=== PATIENT | female | born 1935 | race Caucasian/White ===

== ENCOUNTER 2021-08-29 10:52 | Emergency (ER) | payer MEDICARE, OTHER ==
[2021-08-29] MEDS ORDERED: Sodium Chloride 0.9% 10 ML Syringe FLUSH PRN (12:00)
[2021-08-29 12:09] LABS: CHLORIDE,CL 102 mmol/L (98-107); SODIUM,NA 137 mmol/L (136-145)
[2021-08-29 12:11] LABS: ANION GAP 13.9 mmol/L (5-15)
[2021-08-29] MEDS ORDERED: Iopamidol 612 MG/ML 100 ML Bottle IVPUSH ONE (12:45)
[2021-08-29] MEDS ORDERED: Ciprofloxacin in D5W 400 MG in Premix Bag 1 BAG IV ONE ×2 (13:10)
[2021-08-29 13:24] VITALS: BP 129/67; PULSE 78
--- NOTE | 2021-08-29 13:35 | CT ---
[id number] CT/CT Abdomen Pelvis W IV EXAM: CT Abdomen Pelvis W IV CLINICAL DATA: LEFT SIDED ABDOMEN PAIN, ELEVATED WHITE BLOOD COUNT. COMPARISON STUDY: None. FINDINGS: Dependent atelectasis at the lung bases bilaterally. Large hiatal hernia. The gallbladder is surgically absent. Hepatic steatosis. The spleen, pancreas, adrenal glands are unremarkable. Bilateral renal cortical cysts. The kidneys are otherwise unremarkable. Extensive colonic diverticulosis. In the region of multiple descending colon diverticula there is wall thickening and surrounding inflammatory change. No free air, free fluid or fluid collection. Scattered changes of spondylosis the spine. No fracture or osseous lesion. IMPRESSION: 1. Acute uncomplicated diverticulitis of the descending colon. Patricio Patterson DO 08/29/21 [id number] Thank you for allowing us to participate in the care of your patient.
[2021-08-29] MEDS ORDERED: Take Home: metroNIDAZOLE 500 MG Tab, 4 Tab Pack PO ONE (13:45)
[2021-08-29] MEDS ORDERED: Take Home: Ciprofloxacin 500 MG Tab, 2 Tab Pack PO ONE (13:45)
--- NOTE | 2021-08-29 23:34 | EDM.PDOC ---
ED HPI GENERAL MEDICAL PROBLEM - General Chief Complaint: General Stated Complaint: WEAKNESS,NOT FEELING WELL FOR 1 WEEK Time Seen by Provider: 08/29/21 11:10 Source of Information: Reports: Patient, Family History Limitations: Reports: No Limitations - History of Present Illness INITIAL COMMENTS - FREE TEXT/NARRATIVE: Pt. presents to ER with complaints of L sided abd. pain. She has been experiencing some weakness, fatigue for the past week. Denies any fever or chills. She states that she is passing gas. Denies any melena, hematochezia or hematemesis. Pt. was able to ambulate into ER. Denies any other ill contacts. No nausea, vomiting. Denies any constipation or diarrhea. She denies any cough, chest congestion, sore throat, rhinorrhea. Denies any dysuria, frequency or urgency. Onset: Today Onset Date: 08/29/21 Location: Reports: Head, Face Quality: Reports: Ache - Related Data Allergies Allergy/AdvReac Type Severity Reaction Status Date / Time aspirin Allergy Itching Verified 08/29/21 11:32 codeine Allergy Itching Verified 08/29/21 11:32 Home Meds: Home Meds Ciprofloxacin [Ciloxan 0.3% Ophth Soln] 1 drop OP TID 07/09/16 [History] Ketorolac [Acular 0.5% Ophth Soln] 1 drop OP TID 07/09/16 [History] Levothyroxine 75 mcg PO DAILY 07/09/16 [History] Multivitamin [Multivitamins] 1 tab PO DAILY 07/09/16 [History] Omeprazole Magnesium [Prilosec Otc] 1 cap PO QAM 07/09/16 [History] prednisoLONE Acetate [Pred Forte 1% Ophth Susp] 1 drop OP TID 07/09/16 [History] Past Medical History HEENT History: Reports: Cataract, Other (See Below) Other HEENT History: asteroid hyalitis, Cardiovascular History: Reports: High Cholesterol Respiratory History: Reports: None Gastrointestinal History: Reports: GERD Genitourinary History: Reports: None [employer] History: Reports: None Musculoskeletal History: Reports: Osteoarthritis 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, Peripheral Psychiatric History: Reports: Depression Endocrine/Metabolic History: Reports: Hypothyroidism Hematologic History: Reports: None Immunologic History: Reports: None Oncologic (Cancer) History: Reports: None Dermatologic History: Reports: None - Past Surgical History Head Surgeries/Procedures: Reports: None HEENT Surgical History: Reports: Cataract Surgery, Tonsillectomy Cardiovascular Surgical History: Reports: None Respiratory Surgical History: Reports: None GI Surgical History: Reports: Appendectomy, Cholecystectomy, Colonoscopy, Hernia Repair/Other, Other (See Below) Other GI Surgeries/Procedures: hemorrhoid sx Female Surgical History: Reports: Tubal Ligation Endocrine Surgical History: Reports: None Neurological Surgical History: Reports: None Musculoskeletal Surgical History: Reports: Other (See Below) Other Musculoskeletal Surgeries/Procedures:: bunionextomy bilat, Oncologic Surgical History: Reports: None Dermatological Surgical History: Reports: None Social & Family History - Tobacco Use Tobacco Use Status *Q: Never Tobacco User - Caffeine Use Caffeine Use: Reports: None ED ROS GENERAL - Review of Systems Review Of Systems: See Below Constitutional: Reports: No Symptoms HEENT: Reports: Other (see HPI) Respiratory: Reports: No Symptoms Cardiovascular: Reports: No Symptoms. Denies: Chest Pain, Dyspnea on Exertion, Edema, Orthopnea, Palpitations, Syncope Endocrine: Reports: No Symptoms GI/Abdominal: Reports: No Symptoms : Reports: No Symptoms Musculoskeletal: Reports: No Symptoms Skin: Reports: Other (see HPI) Neurological: Reports: No Symptoms. Denies: Confusion, Dizziness, Headache, Syncope Psychiatric: Reports: No Symptoms ED EXAM, GENERAL - Physical Exam Exam: See Below Exam Limited By: No Limitations General Appearance: Alert, WD/WN, No Apparent Distress Eye Exam: Bilateral Eye: EOMI, Normal Fundi, Normal Inspection, PERRL Nose: Normal Mucosa, No Blood, Other (2 cm laceration across bridge of nose) Throat/Mouth: Normal Inspection, Normal Lips, Normal Teeth, Normal Gums GI/Abdominal: Normal Bowel Sounds, Soft, No Organomegaly, No Distention, No Mass, Pelvis Stable, Guarding, Rigid, Tender Course - Vital Signs Last Recorded V/S: Last Vital Signs Temp 36.4 C 08/29/21 11:10 Pulse 78 08/29/21 13:23 Resp 16 08/29/21 13:23 BP 129/67 08/29/21 13:23 Pulse Ox 94 L 08/29/21 13:23 - Orders/Labs/Meds Orders: Active Orders 24 hr Category Date Time Status CULTURE BLOOD [BC] Stat Lab 08/29/21 11:36 Received CULTURE BLOOD [BC] Stat Lab 08/29/21 11:40 Received CULTURE URINE [RM] Stat Lab 08/29/21 12:08 Received Blood Culture x2 Reflex Set [OM.PC] Stat Oth 08/29/21 11:26 Ordered Peripheral IV Insertion Adult [OM.PC] Routine Oth 08/29/21 12:00 Ordered Labs: Laboratory Tests 08/29/21 08/29/21 08/29/21 Range/Units 11:36 11:36 11:36 WBC 13.4 H (4.0-10.0) x10^3/uL RBC 4.31 (4.00-5.50) x10^6/uL Hgb 12.9 (12.0-16.0) g/dL Hct 38.3 (33.0-47.0) % MCV 88.9 (78.0-93.0) fL MCH 29.9 (26.0-32.0) pg MCHC 33.7 (32.0-36.0) g/dL RDW Coeff of Ana 13.2 (10.0-15.0) % Plt Count 261 (130-400) x10^3/uL Immature Gran % (Auto) 0.10 (0.00-0.43) % Neut % (Auto) 85.1 H (50.0-80.0) % Lymph % (Auto) 6.9 L (25.0-50.0) % Davison % (Auto) 7.7 (2.0-11.0) % Eos % (Auto) 0.0 (0.0-4.0) % Baso % (Auto) 0.2 (0.2-1.2) % Neut # (Auto) 11.4 H (1.8-7.7) x10^3/uL Lymph # (Auto) 0.9 L (1.0-4.8) x10^3/uL Davison # (Auto) 1.0 H (0.0-0.8) x10^3/uL Eos # (Auto) 0.0 (0.0-0.5) x10^3/uL Baso # (Auto) 0.0 (0.0-0.2) x10^3/uL Immature Gran # (Auto) 0.02 (0.00-0.07) x10^3/uL Sodium 137 (136-145) mmol/L Potassium 3.9 (3.5-5.1) mmol/L Chloride 102 (98-107) mmol/L Carbon Dioxide 25 (21-32) mmol/L Anion Gap 13.9 (5-15) mmol/L BUN 10 (7-18) mg/dL Creatinine 0.9 (0.55-1.02) mg/dL Est Cr Clr Drug Dosing TNP Estimated GFR (MDRD) 60 Glucose 105 H (70-99) mg/dL Lactic Acid 1.0 (0.4-2.0) mmol/L Calcium 8.9 (8.5-10.1) mg/dL Corrected Calcium 9.4 (8.5-10.1) mg/dL Total Bilirubin 0.6 (0.2-1.0) mg/dL AST 21 (15-37) U/L ALT 20 (14-59) U/L Alkaline Phosphatase 90 (46-116) U/L C-Reactive Protein 12.1 H (<=0.9) mg/dL Total Protein 8.3 H (6.4-8.2) g/dL Albumin 3.4 (3.4-5.0) g/dL Globulin 4.9 Albumin/Globulin Ratio 0.69 Urine Color (YELLOW) Urine Appearance (CLEAR) Urine pH (5.0-8.0) Ur Specific [place] Urine Protein (NEGATIVE) mg/dL Urine Glucose (UA) (NEGATIVE) mg/dL Urine Ketones (NEGATIVE) mg/dL Urine Occult Blood (NEGATIVE) Urine Nitrite (NEGATIVE) Urine Bilirubin (NEGATIVE) Urine Urobilinogen (0.2) EU/dL Ur Leukocyte Esterase (NEGATIVE) Urine RBC (NOT SEEN) /HPF Urine WBC (NOT SEEN) /HPF Ur Squamous Epith Cells (NOT SEEN) /HPF Amorphous Sediment Urine Bacteria (NOT SEEN) /HPF Urine Mucus (NOT SEEN) /LPF SARS CoV-2 RNA Rapid SEGUNDO (NEGATIVE) 08/29/21 08/29/21 Range/Units 12:03 12:08 WBC (4.0-10.0) x10^3/uL RBC (4.00-5.50) x10^6/uL Hgb (12.0-16.0) g/dL Hct (33.0-47.0) % MCV (78.0-93.0) fL MCH (26.0-32.0) pg MCHC (32.0-36.0) g/dL RDW Coeff of Ana (10.0-15.0) % Plt Count (130-400) x10^3/uL Immature Gran % (Auto) (0.00-0.43) % Neut % (Auto) (50.0-80.0) % Lymph % (Auto) (25.0-50.0) % Davison % (Auto) (2.0-11.0) % Eos % (Auto) (0.0-4.0) % Baso % (Auto) (0.2-1.2) % Neut # (Auto) (1.8-7.7) x10^3/uL Lymph # (Auto) (1.0-4.8) x10^3/uL Davison # (Auto) (0.0-0.8) x10^3/uL Eos # (Auto) (0.0-0.5) x10^3/uL Baso # (Auto) (0.0-0.2) x10^3/uL Immature Gran # (Auto) (0.00-0.07) x10^3/uL Sodium (136-145) mmol/L Potassium (3.5-5.1) mmol/L Chloride (98-107) mmol/L Carbon Dioxide (21-32) mmol/L Anion Gap (5-15) mmol/L BUN (7-18) mg/dL Creatinine (0.55-1.02) mg/dL Est Cr Clr Drug Dosing Estimated GFR (MDRD) Glucose (70-99) mg/dL Lactic Acid (0.4-2.0) mmol/L Calcium (8.5-10.1) mg/dL Corrected Calcium (8.5-10.1) mg/dL Total Bilirubin (0.2-1.0) mg/dL AST (15-37) U/L ALT (14-59) U/L Alkaline Phosphatase (46-116) U/L C-Reactive Protein (<=0.9) mg/dL Total Protein (6.4-8.2) g/dL Albumin (3.4-5.0) g/dL Globulin Albumin/Globulin Ratio Urine Color Yellow (YELLOW) Urine Appearance Slightly cloudy H (CLEAR) Urine pH 8.5 H (5.0-8.0) Ur Specific [place]an 1.015 Urine Protein Negative (NEGATIVE) mg/dL Urine Glucose (UA) Negative (NEGATIVE) mg/dL Urine Ketones Trace H (NEGATIVE) mg/dL Urine Occult Blood Trace-intact H (NEGATIVE) Urine Nitrite Negative (NEGATIVE) Urine Bilirubin Negative (NEGATIVE) Urine Urobilinogen 0.2 (0.2) EU/dL Ur Leukocyte Esterase Large H (NEGATIVE) Urine RBC 0-5 (NOT SEEN) /HPF Urine WBC 10-20 H (NOT SEEN) /HPF Ur Squamous Epith Cells Moderate H (NOT SEEN) /HPF Amorphous Sediment Occasional Urine Bacteria Occasional H (NOT SEEN) /HPF Urine Mucus Few H (NOT SEEN) /LPF SARS CoV-2 RNA Rapid SEGUNDO Negative (NEGATIVE) Meds: Medications Discontinued Medications Generic Name Dose Route Start Last Admin Trade Name Freq PRN Reason Stop Dose Admin Ciprofloxacin 2 packet 08/29/21 13:45 08/29/21 14:32 Take Home: Ciprofloxacin 500 Mg Tab, 2 Tab Pack PO 08/29/21 13:46 2 packet ONETIME ONE Administration Ciprofloxacin/Dextrose 400 mg/ 200 mls @ 200 mls/hr 08/29/21 13:10 08/29/21 13:20 Premix IV 08/29/21 14:09 200 mls/hr STAT ONE Administration Iopamidol 100 ml 08/29/21 12:45 08/29/21 13:11 Iopamidol 612 Mg/Ml 100 Ml Bottle IVPUSH 08/29/21 12:46 75 ml ONETIME ONE Administration Metronidazole 2 packet 08/29/21 13:45 08/29/21 14:32 Take Home: Metronidazole 500 Mg Tab, 4 Tab Pack PO 08/29/21 13:46 2 packet ONETIME ONE Administration Sodium Chloride 10 ml 08/29/21 12:00 Sodium Chloride 0.9% 10 Ml Syringe FLUSH ASDIRECTED PRN Keep Vein Open - Radiology Interpretation Free Text/Narrative:: CT abdomen and pelvis with IV contast obtained, positive for uncomplicated diverticulitis - Re-Assessments/Exams Free Text/Narrative Re-Assessment/Exam: IV access established. Pt. was given cipro 400mg IV. Departure - Departure Time of Disposition: 14:00 Disposition: Home, Self-Care 01 Clinical Impression: Diverticulitis, UTI (urinary tract infection) - Discharge Information Instructions: Diverticulitis, [place], Ciprofloxacin tablets, Metronidazole tablets or capsules Referrals: Laura Mejía PA-C [Primary Care Provider] - Forms: ED Department Discharge Additional Instructions: home to rest. Drink plenty of water. Cipro 500mg 1 twice daily until gone Metronidazole 500mg 1 3 times daily until gone Return to ER if unable to hold down fluids, if you have worsening discomfort, chills, weakness, severe fever, or lightheadedness. Sepsis Event Note (ED) - Focused Exam Vital Signs: Vital Signs Pulse Resp BP Pulse Ox 08/29/21 13:23 78 16 129/67 94 L 08/29/21 12:35 68 14 128/71 96 - Problem List Review Problem List Initiated/Reviewed/Updated: Yes - My Orders Last 24 Hours: My Active Orders 08/29/21 11:26 Blood Culture x2 Reflex Set [OM.PC] Stat 08/29/21 11:36 CULTURE BLOOD [BC] Stat 08/29/21 11:40 CULTURE BLOOD [BC] Stat 08/29/21 12:00 Peripheral IV Insertion Adult [OM.PC] Routine 08/29/21 12:08 CULTURE URINE [RM] Stat - Assessment/Plan Last 24 Hours: My Active Orders 08/29/21 11:26 Blood Culture x2 Reflex Set [OM.PC] Stat 08/29/21 11:36 CULTURE BLOOD [BC] Stat 08/29/21 11:40 CULTURE BLOOD [BC] Stat 08/29/21 12:00 Peripheral IV Insertion Adult [OM.PC] Routine 08/29/21 12:08 CULTURE URINE [RM] Stat Plan: home to rest. Drink plenty of water. Cipro 500mg 1 twice daily until gone Metronidazole 500mg 1 3 times daily until gone Return to ER if unable to hold down fluids, if you have worsening discomfort, chills, weakness, severe fever, or lightheadedness.
== END 2021-08-29 14:38 | disposition home or self-care (01) ==
LOC: VM.ED 10:52
DX: K57.32 Diverticulitis of large intestine without perforation or abscess without bleeding (principal); N39.0 Urinary tract infection, site not specified; K21.9 Gastro-esophageal reflux disease without esophagitis; E03.9 Hypothyroidism, unspecified; Z88.6 Allergy status to analgesic agent; Z88.5 Allergy status to narcotic agent; Z79.899 Other long term (current) drug therapy; Z20.822 Contact with and (suspected) exposure to COVID-19
CPT/HCPCS: 36415; 74177; 80053; 81001; 83605; 85025; 86140; 87040; 87086; 96365; 99284; 99285-25; A9270-GY; J0744; Q9967; U0002

== ENCOUNTER 2023-12-10 15:43 | Emergency (ER) | payer MEDICARE, OTHER ==
[2023-12-10 16:11] LABS: BASOPHILS ABSOLUTE AUTO 0.1 x10^3/uL (0.0-0.2); BASOPHILS PERCENT AUTO 0.7 % (0.2-1.2); EOSINOPHILS ABSOLUTE AUTO 0.1 x10^3/uL (0.0-0.5); HEMATOCRIT 41.7 % (33.0-47.0); HEMOGLOBIN 13.9 g/dL (12.0-16.0); IMMATURE GRAN ABSOLUTE AUTO 0.02 x10^3/uL (0.00-0.07); LYMPHOCYTES ABSOLUTE AUTO 1.9 x10^3/uL (1.0-4.8); MEAN CORPUSCULAR HEMOGLOBIN 30.3 pg (26.0-32.0); MEAN CORPUSCULAR HGB CONC 33.3 g/dL (32.0-36.0); MONOCYTES ABSOLUTE AUTO 0.7 x10^3/uL (0.0-0.8); MONOCYTES PERCENT AUTO 10.4 % (2.0-11.0); NEUTROPHILS ABSOLUTE AUTO 3.9 x10^3/uL (1.8-7.7); NEUTROPHILS PERCENT AUTO 58.6 % (50.0-80.0); PLATELET COUNT,PLT 221 x10^3/uL (130-400); RED BLOOD CELL COUNT 4.58 x10^6/uL (4.00-5.50); WHITE BLOOD CELL COUNT,WBC 6.7 x10^3/uL (4.0-10.0)
[2023-12-10 16:18] LABS: APPEARANCE,URINE CLEAR (CLEAR); BILIRUBIN,URINE NEGATIVE (NEGATIVE); COLOR,URINE YELLOW (YELLOW); GLUCOSE,URINE NEGATIVE (NEGATIVE); KETONES,URINE NEGATIVE (NEGATIVE); LEUKOCYTE ESTERASE,URINE MODERATE (NEGATIVE); NITRITE,URINE NEGATIVE (NEGATIVE); OCCULT BLOOD,URINE NEGATIVE (NEGATIVE); PH,URINE 7.5 (5.0-8.0); PROTEIN,URINE NEGATIVE (NEGATIVE); UROBILINOGEN,URINE 0.2 EU/dL (0.2)
[2023-12-10 16:27] LABS: RBC,URINE 0-5 /HPF (NOT SEEN)
[2023-12-10 16:28] LABS: BACTERIA,URINE FEW /HPF (NOT SEEN); MUCUS,URINE NOT SEEN /LPF (NOT SEEN); SQUAMOUS EPITHELIAL CELLS,UR FEW /HPF (NOT SEEN)
[2023-12-10 16:36] LABS: A/G RATIO 0.73; ALANINE AMINOTRANSFERASE,ALT 20 U/L (14-59); ALBUMIN 3.7 g/dL (3.4-5.0); ALKALINE PHOSPHATASE 73 U/L (46-116); ANION GAP 12.2 mmol/L (5-15); ASPARTATE AMNIOTRANSFERASE,AST 20 U/L (15-37); BILIRUBIN TOTAL 0.2 mg/dL (0.2-1.0); BLOOD UREA NITROGEN,BUN 15 mg/dL (7-18); CALCIUM 9.1 mg/dL (8.5-10.1); CARBON DIOXIDE,CO2 29 mmol/L (21-32); CHLORIDE,CL 103 mmol/L (98-107); CREATININE 0.9 mg/dL (0.55-1.02); ESTIMATED GFR 62 mL/min (>=60); GLUCOSE RANDOM 104 mg/dL (70-99); POTASSIUM,K 4.2 mmol/L (3.5-5.1); PROTEIN TOTAL,TP 8.8 g/dL (6.4-8.2); SODIUM,NA 140 mmol/L (136-145)
== END 2023-12-10 16:56 | disposition home or self-care (01) ==
LOC: VM.ED 15:43
DX: R53.81 Other malaise (principal); R53.83 Other fatigue; K21.9 Gastro-esophageal reflux disease without esophagitis; E03.9 Hypothyroidism, unspecified; Z88.6 Allergy status to analgesic agent; Z88.5 Allergy status to narcotic agent; Z90.49 Acquired absence of other specified parts of digestive tract
CPT/HCPCS: 36415; 80053; 81001; 84484; 85025; 87086; 93005; 99284